=== PATIENT | female | born 1950 | race Caucasian/White ===

== ENCOUNTER 2024-03-01 12:32 | Inpatient (IN) | payer MEDICAID, MEDICARE ==
[2024-03-01 13:05] LABS: BASOPHILS PERCENT AUTO 0.3 % (0.1-1.3); EOSINOPHILS ABSOLUTE AUTO 0.12 K/uL (0.00-0.40); EOSINOPHILS PERCENT AUTO 1.8 % (0.0-5.4); HEMATOCRIT 36.2 % (34.3-46.0); IMMATURE GRAN PERCENT AUTO 0.3 % (0.0-0.7); LYMPHOCYTES ABSOLUTE AUTO 0.45 K/uL (0.8-3.3); LYMPHOCYTES PERCENT AUTO 6.9 % (11.4-47.7); MEAN CORPUSCULAR HEMOGLOBIN 29.6 pg (31.6-35.5); MEAN CORPUSCULAR HGB CONC 30.4 g/dL (31.6-35.5); MEAN CORPUSCULAR VOLUME 97.6 fL (81.4-99.0); MONOCYTES ABSOLUTE AUTO 0.39 K/uL (0.20-0.90); MONOCYTES PERCENT AUTO 5.9 % (3.3-12.6); NEUTROPHILS ABSOLUTE AUTO 5.56 K/uL (1.0-7.6); NEUTROPHILS PERCENT AUTO 84.8 % (40.0-78.1); PLATELET COUNT,PLT 131 K/uL (130-375); RED BLOOD CELL COUNT 3.71 M/uL (3.77-5.24); WHITE BLOOD CELL COUNT,WBC 6.6 K/uL (3.2-11.0)
[2024-03-01 13:06] LABS: BASOPHILS ABSOLUTE AUTO 0.02 K/uL (0.00-0.10); IMMATURE GRAN ABSOLUTE AUTO 0.02 K/uL (0.00-0.23)
[2024-03-01 13:36] LABS: A/G RATIO 0.7 (1.2-2.2); ALANINE AMINOTRANSFERASE,ALT 13 U/L (12-78); ALBUMIN 2.8 g/dL (3.4-5.0); ALKALINE PHOSPHATASE 96 U/L (46-116); ASPARTATE AMNIOTRANSFERASE,AST 11 U/L (15-37); BILIRUBIN TOTAL 0.2 mg/dL (0.2-1.0); BLOOD UREA NITROGEN,BUN 22 mg/dL (7-18); C-REACTIVE PROTEIN 7.35 mg/dL (<0.50); CALCIUM 8.7 mg/dL (8.5-10.1); CARBON DIOXIDE,CO2 35 mmol/L (21-32); CHLORIDE,CL 104 mmol/L (100-108); CREATININE 0.9 mg/dL (0.6-1.0); EST CRCL DRUG DOSING (CG) 46.64 mL/min; ESTIMATED GFR 67 mL/min (>60); GLUCOSE RANDOM 177 mg/dL (74-106); POTASSIUM,K 4.3 mmol/L (3.6-5.2); SODIUM,NA 142 mmol/L (140-148); TROPONIN I HIGH SENSITIVITY 10.9 pg/mL (<=60.3)
[2024-03-01 13:38] LABS: ANION GAP 7.3 mmol/L (5.0-14.0)
[2024-03-01 13:59] LABS: BICARBONATE,VENOUS 34.7 mmol/L; CARBOXYHEMOGLOBIN 2.5 % (0.0-1.6); METHEMOGLOBIN 0.8 %; O2 SATURATION VENOUS 56.4; OXYHEMOGLOBIN 54.5 %; PH,VENOUS 7.316 (7.350-7.450); TOTAL HEMOGLOBIN 11.2 g/dL (12.0-16.0)
[2024-03-01 14:00] LABS: PO2 VENOUS 33.7 mm/Hg
[2024-03-01] MEDS: Magnesium Sulfate/Water 2 GM in Premix Bag 1 BAG IV ONE (14:09)
[2024-03-01 14:14] LABS: T3 FREE 1.53 pg/dL (2.18-3.98); T4 FREE 0.88 ng/dL (0.76-1.46)
[2024-03-01 14:23] LABS: APPEARANCE,URINE CLEAR (CLEAR); BILIRUBIN,URINE SMALL (NEGATIVE); COLOR,URINE YELLOW (YELLOW); GLUCOSE,URINE 100 mg/dL (NEGATIVE); KETONES,URINE TRACE mg/dL (NEGATIVE); LEUKOCYTE ESTERASE,URINE NEGATIVE (NEGATIVE); NITRITE,URINE NEGATIVE (NEGATIVE); OCCULT BLOOD,URINE NEGATIVE (NEGATIVE); PH,URINE 5.5 (5.0-8.0); PROTEIN,URINE 100 mg/dL (NEGATIVE)
[2024-03-01 14:28] LABS: AMORPHOUS SEDIMENT,URINE NOT SEEN; BACTERIA,URINE MODERATE; EPITHELIAL CELLS,URINE MANY; MUCUS,URINE MODERATE; RBC,URINE NOT SEEN (0-5); WBC,URINE 0-5 (0-5)
[2024-03-01] MEDS: Iopamidol 755 Mg/ML 100 ML Bottle IV ONE (15:12)
[2024-03-01] MEDS: Sodium Chloride 0.9% 100 ML IV SCH (15:12)
[2024-03-01] MEDS: cefTRIAXone 2 GM in Sodium Chloride 0.9% 50 ML IV ONE (17:13)
[2024-03-01 18:00] LABS: BASE EXCESS ARTERIAL 5.8 mm/L; BICARBONATE,ARTERIAL 33.4 mmol/L (22.0-26.0); O2 SATURATION ARTERIAL 98.3 % (95.0-98.0); OXYHEMOGLOBIN 95.4 %
[2024-03-01 18:02] LABS: PCO2 ARTERIAL 69.7 mmHg (35.0-42.0)
[2024-03-01] MEDS: methylPREDNISolone Sodium Succinate 40 MG/1 ML SDV IVPUSH SCH (18:22)
[2024-03-01] MEDS: Doxycycline 100 MG in Sodium Chloride 0.9% 100 ML IV SCH (18:26)
[2024-03-01] MEDS: Diltiazem 25 MG/5 ML SDV IVPUSH ONE (18:32)
[2024-03-01] MEDS: Diltiazem 100 MG in Sodium Chloride 0.9% 100 ML IV SCH (18:36)
[2024-03-01] MEDS ORDERED: Glucose Gel 15 GM in 37.5 GM Tube PO PRN (20:14)
[2024-03-01] MEDS ORDERED: Ondansetron 4 MG/2 ML SDV IV PRN (20:14)
[2024-03-01] MEDS ORDERED: Sodium Chloride 0.9% 10 ML Syringe FLUSH PRN (20:14)
[2024-03-01] MEDS ORDERED: Albuterol 0.083% 2.5 MG/3 ML Neb Soln NEB PRN (20:14)
[2024-03-01] MEDS ORDERED: 50% Dextrose in Water 50 ML Syringe IV PRN (20:14)
[2024-03-01] MEDS: Enoxaparin 40 MG/0.4 ML Syringe SUBCUT SCH (21:30)
[2024-03-01] MEDS: atorvaSTATin 20 MG Tab PO SCH (21:31)
[2024-03-01] MEDS: QUEtiapine 100 MG Tab PO SCH (21:31)
[2024-03-01] MEDS: Ziprasidone HCl 20 MG Cap PO SCH (21:34)
[2024-03-01] MEDS: Insulin Lispro 100 Unit/ML 3 ML KwikPen SUBCUT SCH (21:37)
[2024-03-01] MEDS: Sodium Chloride 0.9% 1,000 ML IV SCH (22:00)
[2024-03-01] MEDS: Albuterol/Ipratropium 3.0-0.5 MG/3 ML Neb Soln NEB PRN (22:25)
[2024-03-01] MEDS: ClonazePAM 0.5 MG Tab PO PRN (23:13)
[2024-03-02 06:00] LABS: O2 SATURATION ARTERIAL 97.5 % (95.0-98.0); PCO2 ARTERIAL 57.1 mmHg (35.0-42.0)
[2024-03-02 06:01] LABS: BICARBONATE,ARTERIAL 31.6 mmol/L (22.0-26.0)
[2024-03-02 06:02] LABS: BASE EXCESS ARTERIAL 5.4 mm/L
[2024-03-02 06:03] LABS: CARBOXYHEMOGLOBIN 2.3 % (0.0-1.6); METHEMOGLOBIN 0.8 %; OXYHEMOGLOBIN 94.5 %
[2024-03-02 06:27] LABS: HEMOGLOBIN 10.6 g/dL (11.2-15.5); MEAN CORPUSCULAR HEMOGLOBIN 29.2 pg (31.6-35.5); MEAN CORPUSCULAR HGB CONC 30.3 g/dL (31.6-35.5); MEAN CORPUSCULAR VOLUME 96.4 fL (81.4-99.0); RED BLOOD CELL COUNT 3.63 M/uL (3.77-5.24); WHITE BLOOD CELL COUNT,WBC 6.7 K/uL (3.2-11.0)
[2024-03-02 06:39] LABS: ANION GAP 11.2 mmol/L (5.0-14.0); BLOOD UREA NITROGEN,BUN 19 mg/dL (7-18); CARBON DIOXIDE,CO2 30 mmol/L (21-32); CHLORIDE,CL 104 mmol/L (100-108); GLUCOSE RANDOM 213 mg/dL (74-106); POTASSIUM,K 5.2 mmol/L (3.6-5.2); SODIUM,NA 140 mmol/L (140-148)
[2024-03-02 06:40] LABS: A/G RATIO 0.6 (1.2-2.2); ALANINE AMINOTRANSFERASE,ALT 16 U/L (12-78); ALBUMIN 2.6 g/dL (3.4-5.0); ALKALINE PHOSPHATASE 96 U/L (46-116); ASPARTATE AMNIOTRANSFERASE,AST 12 U/L (15-37); BILIRUBIN TOTAL 0.2 mg/dL (0.2-1.0); CALCIUM 8.6 mg/dL (8.5-10.1); CREATININE 0.8 mg/dL (0.6-1.0); EST CRCL DRUG DOSING (CG) 52.47 mL/min; ESTIMATED GFR 77 mL/min (>60); MAGNESIUM 2.4 mg/dL (1.8-2.4); PROTEIN TOTAL,TP 6.9 g/dL (6.4-8.2)
[2024-03-02] MEDS: Citalopram 20 MG Tab PO SCH (08:31)
[2024-03-02] MEDS: Pantoprazole 40 MG Tab.CR PO SCH (08:31)
[2024-03-02] MEDS ORDERED: Non-Formulary Medication 1 Each (Methimazole [Methimazole] 5 MG Tablet) PO SCH (09:00)
[2024-03-02] MEDS: Diltiazem IR 30 MG Tab PO SCH (10:28)
[2024-03-02] MEDS: Polyethylene Glycol 3350 Powder 17 GM Packet PO PRN (14:22)
[2024-03-02] MEDS: cefTRIAXone 1 GM in Sodium Chloride 0.9% 50 ML IV SCH (17:41)
[2024-03-02] MEDS: Nystatin Topical Powder 15 GM Bottle TOP SCH (21:36)
[2024-03-02] MEDS: Melatonin 3 MG Tab PO PRN (21:38)
[2024-03-02] MEDS: Enoxaparin 40 MG/0.4 ML Syringe SUBCUT SCH (21:39)
[2024-03-03 05:14] LABS: ANION GAP 4.9 mmol/L (5.0-14.0); CALCIUM 8.5 mg/dL (8.5-10.1); CREATININE 0.9 mg/dL (0.6-1.0); EST CRCL DRUG DOSING (CG) 50.56 mL/min; POTASSIUM,K 4.6 mmol/L (3.6-5.2)
[2024-03-03] MEDS: predniSONE 20 MG Tab PO SCH (08:20)
[2024-03-03] MEDS: Diltiazem 180 MG Cap.CD PO SCH (09:21)
[2024-03-03] MEDS ORDERED: Vancomycin 1 GM SDV IV SCH (12:00)
[2024-03-03] MEDS: Vancomycin 2 GM in Sodium Chloride 0.9% 500 ML IV ONE (13:13)
[2024-03-03] MEDS: Furosemide 20 MG/2 ML VIAL IVPUSH ONE (14:45)
[2024-03-03] MEDS: Acetaminophen 325 MG Tab PO PRN (23:41)
[2024-03-04 05:21] LABS: ANION GAP 7.9 mmol/L (5.0-14.0); CALCIUM 8.3 mg/dL (8.5-10.1); EST CRCL DRUG DOSING (CG) 45.5 mL/min; POTASSIUM,K 4.5 mmol/L (3.6-5.2); VANCOMYCIN RANDOM 25.8 ug/mL (0.0-50.0)
== END 2024-03-04 13:20 | DRG 193 ==
LOC: JP.ED 12:32 → JP.ICU 17:23
PROVIDERS: ADMIT Hospitalist; ATTEND Hospitalist
PROC: 4A133R1 Monitoring of Arterial Saturation, Peripheral, Percutaneous Approach (ICD-10-PCS; principal; 2024-03-01)
DX: J18.9 Pneumonia, unspecified organism (principal); J96.21 Acute and chronic respiratory failure with hypoxia; I45.81 Long QT syndrome; J96.22 Acute and chronic respiratory failure with hypercapnia; E66.2 Morbid (severe) obesity with alveolar hypoventilation; J44.0 Chronic obstructive pulmonary disease with (acute) lower respiratory infection; J44.1 Chronic obstructive pulmonary disease with (acute) exacerbation; Z68.42 Body mass index [BMI] 45.0-49.9, adult; I48.91 Unspecified atrial fibrillation; E11.9 Type 2 diabetes mellitus without complications; F32.A Depression, unspecified; F41.9 Anxiety disorder, unspecified; R94.31 Abnormal electrocardiogram [ECG] [EKG]; Z79.01 Long term (current) use of anticoagulants; Z79.899 Other long term (current) drug therapy
CPT/HCPCS: 36415; 36600; 70450 ×2; 70496 ×2; 70498 ×2; 71275 ×2; 80053; 81001; 82803 ×2; 83605; 83735; 83880; 84145; 84439; 84481; 84484; 85025; 86140; 93005; 93010; 96365; 96366; 96375; 99285 ×2; J0696; J3475; J3490 ×2; Q9967; 80048; 80202; 82947; 85027; 87040; 87077; 93306; 94640; 94660; 97162-GP; 97165-GO; 97530-GP; 99222; 99232; 99238; A9270-GY; J1650; J1815; J1940; J2919; J3370; J7030; J7040; J7050; J7512; J7620